=== PATIENT | female | born 1950 | race Caucasian/White ===

== ENCOUNTER → 2016-08-22 | Outpatient (CLI) | payer OTHER ==
--- NOTE | ~2016-08-22 | MR104 ---
[facility] A Service of [facility] & [facility] RADIOLOGY TEXT RESULTS PATIENT: LEONID RUSSELL LOCATION: [facility] : 54 UNIT #: [id number] AGE: [address]: AIDA BRUNNER MD SEX: F ORDER DR: [id number] [address] [address] [id number] O MR#: [id number] #: [id number] NAME: LEONID RUSSELL : 1950 SEX: F STUDY DATE/TIME: 08/22/2016 11:09 UNIT: [facility] ROOM: STUDY DESCRIPTION: MR Knee Wo Contrast Rt Attending Physician: Freddy Brunner M.D. Referring Physician: Freddy Brunner M.D. Ordering Physician: Freddy Brunner M.D. Primary Care Physician: Freddy Brunner M.D. MRI CENTER REPORT This report is preliminary unless electronic signature is present. EXAM MRI of the right knee HISTORY 65-year-old female right knee pain, mainly diffuse knee pain x1 week. Decreased range of motion. COMPARISON Right knee films, 08/21/2016 FINDINGS Multiplanar multiecho imaging was performed of the right knee utilizing a high field magnet and dedicated protocol. Mild squaring of the tibial margins as well as developing bone spurs both medial and lateral femoral tibial compartments compatible with early degenerative arthropathy. Small osteophytes also noted off the patella. Subchondral edema noted along the lateral patellar facet corresponding to sizable focus of moderate to high-grade chondromalacia measuring up to 2.0 cm. Full-thickness cartilage loss noted off portions of the median ridge of the patella. Full-thickness cartilage loss also noted along the lateral femoral trochlea. Small knee effusion. No discernible loose body. There is a large full-thickness radial tear root attachment posterior horn medial meniscus measuring about 8.0 mm in length. This represents a full-thickness tear with mild medial extrusion of the meniscus. Medial compartment demonstrates moderate-grade chondromalacia along the central weightbearing aspect of the medial femoral condyle estimated at about 7.0 x 17.0 mm. In the lateral compartment the meniscus demonstrates some degenerative fraying of the inner margin but no discernible tear. Lateral compartment articular cartilage unremarkable. Anterior and posterior cruciate ligaments appear intact. The collateral ligaments and extensor mechanism are unremarkable. Fluid extravasation is STS. [facility] A Service of [facility] & [facility] RADIOLOGY TEXT RESULTS PATIENT: LEONID RUSSELL LOCATION: [facility] : 54 UNIT #: [id number] AGE: [address]: AIDA BRUNNER MD SEX: F ORDER DR: seen along the posterior aspect of the knee superficial to the medial head of the gastrocnemius muscle, most compatible with a ruptured Shin's cyst. This extends below the imaging level of the MR and measures well over 7.0 cm in length. Multiple superficial varicosities are noted. Extensor mechanism unremarkable. IMPRESSION 1. Large full-thickness radial tear root attachment posterior horn medial meniscus. 2. 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 3. Small knee effusion and evidence of probable ruptured Shin's cyst with a sizeable fluid collection along the superficial aspect of medial head of the gastrocnemius muscle most compatible with a ruptured Shin's cyst. STAT * RESULT Dictated by... Jennifer Hernandez M.D. THIS IS AN ELECTRONICALLY VERIFIED REPORT Jennifer Hernandez M.D. at 08/23/2016 10:37 PM Mio TD: 08/23/2016 14:23 JOB #: [id number] MRI CENTER REPORT Page 1 of 1
== END | disposition home or self-care (01) ==
LOC: SMRI 10:36
DX: M25.561 Pain in right knee (principal); S83.241A Other tear of medial meniscus, current injury, right knee, initial encounter; M17.11 Unilateral primary osteoarthritis, right knee; M22.41 Chondromalacia patellae, right knee; M25.461 Effusion, right knee
CPT/HCPCS: 73721